=== PATIENT | male | born 2000 | race Caucasian/White ===

== ENCOUNTER 2022-05-13 04:07 | Emergency (ER) | payer BC, SELFPAY ==
[2022-05-13 04:10] VITALS: BP 121/72; PULSE 89; RESP 14; TEMP 36.3; O2SAT 93; BMI 23.7
[2022-05-13 04:25] VITALS: O2SAT 96
[2022-05-13 04:54] LABS: Strep A DNA Probe* NOT DETECTED (Not Detectd)
[2022-05-13 04:56] LABS: Basophils Percent Auto 0.2 % (0.0-3.0); Eosinophils Percent Auto 0.1 % (0.0-7.0); Hematocrit 42.4 % (37.0-53.0); Hemoglobin* 14.9 gm/dL (13.5-17.5); Immature Granulocytes Pct Auto 0.1 %; Lymphocytes Percent Auto 4.6 % (20-44); Mean Corpuscular HGB Conc 35 gm/dL (32-36); Mean Corpuscular Hemoglobin 32 pg (26-34); Mean Corpuscular Volume 90 fL (80-100); Monocytes Percent Auto 10.8 % (0.0-11.0); Neutrophils Percent Auto 84.2 % (42.0-72.0); Platelet Count* 242 K/uL (140-440); RDW Coefficient of Variation % 11.2 % (11.5-15.5); Red Blood Count 4.69 m/uL (4.30-5.90); White Blood Count* 18.32 K/uL (4.50-11.00)
[2022-05-13 04:59] LABS: Mono Screen* Negative (Negative); Slide Review Reflex No
[2022-05-13 05:06] LABS: PCR FLU A Negative PCR FLU A (Negative); PCR FLU B Negative PCR FLU B (Negative)
[2022-05-13 05:12] LABS: SARS PCR* Negative SARS-CoV-2 (Negative)
--- NOTE | 2022-05-13 05:15 | CRLHL7_ITS ---
For Patients: As a result of the Century Cures Act, medical imaging exams and procedure reports are released immediately into your electronic medical record. You may view this report before your referring provider. If you have questions, please contact your health care provider. INDICATION: Throat pain and swelling. TECHNIQUE: CT soft tissue of the neck was acquired with 93 cc Isovue 370 IV contrast. COMPARISON: None. FINDINGS: Skull base: Unremarkable. Pharynx/Larynx/Trachea: Epiglottis is normal. Moderate edema in the palatine tonsils. No tonsillar abscess. Salivary glands: Unremarkable. Thyroid gland: Unremarkable. No significant nodules. Lymph nodes: Several minimally enlarged bilateral lymph nodes are likely reactive. Vessels: Unremarkable for age. Bones: Unremarkable for age. Misc: No inflammation, mass or fluid collection. Lung apices: Unremarkable. IMPRESSION: Bilateral tonsillitis without abscess. Please note that all CT scans at this facility use dose modulation, iterative reconstruction, and/or weight-based dosing when appropriate to reduce radiation dose to as low as reasonably achievable. Dictated by Rolando Desir MD @ 05/13/2022 7:16:29 AM (Electronically Signed)
[2022-05-13] MEDS: 0.9 % SODIUM CHLORIDE 1000 ml 1,000 ML IV (05:26)
[2022-05-13] MEDS: METHYLPREDNISOLONE SOD SUCC 62.5 MG/ML (125) 93.75 MG IVP (05:34)
[2022-05-13] MEDS: cefTRIAXone 1 GM in 0.9 % SODIUM CHLORIDE Mini-bag 100 ML IVPB (06:05)
[2022-05-13 06:22] VITALS: PULSE 72; RESP 14; O2SAT 98
--- NOTE | 2022-05-13 07:02 | ED.NURSE ---
Report given to AILYN Saunders.
[2022-05-13 07:35] VITALS: BP 137/67; PULSE 75; RESP 20; TEMP 36.6; O2SAT 96
--- NOTE | 2022-05-14 03:52 | ED.GENADULT ---
HPI - General Adult General Chief complaint: Sore Throat Stated complaint: tonsil are swollen, trouble breathing Time Seen by Provider: 05/13/22 04:30 History of Present Illness HPI narrative: 21-year-old man here with complaint of sore throat. Increasingly difficult to swallow. Later discusses that was actually having trouble breathing though admits might have been some combination of mucus affecting at sensation as well. He did have a fever over 101 yesterday. This is 2nd day of markedly worse symptoms. Was sick earlier this week, 6 or 7 days ago. Seen in urgent care treated with a ?steroid spray? and screen negative for strep at that time. Did get better for a few days and now worsening as above. No particular exposures noted. Ibuprofen not really helping. Is trying to push fluids. Has Gatorade here with him. Related Data Home Medications Medication Instructions Recorded Confirmed No Known Home Medications 05/13/22 05/13/22 Allergies Allergy/AdvReac Type Severity Reaction Status Date / Time No Known Drug Allergies Allergy Verified 05/13/22 05:24 Review of Systems Status of ROS: Reports: 6 or more systems reviewed and unremarkable except as noted in History and below PFSH [facility] Social History Smoking Status: Never smoker How often do you have a drink containing alcohol: monthly or less AUDIT-C Alcohol total score: 1 Non-prescribed substance use: former substance user Non-prescribed substance use details: thc Exam Narrative: Exam Narrative: Pleasant. Sounds congested and the nasopharynx a bit of a hot potato voice. Looks flushed. Seems uncomfortable. Skin is warm and dry. Lungs appear to be clear. There is no stridor. Oropharynx is moist. Moderate but not bright red erythema with generalized swelling the tonsils and the posterior oropharynx. There is some exudate as well. It is symmetrical. Neck is supple and demonstrates pain with movement. He does have moderate plus anterior upper cervical lymphadenopathy right greater than left. Heart is in a regular rate and rhythm. No murmur rub or gallop identified. Abdomen is soft. There is some tenderness on reexamination right upper abdomen though without HSM appreciated. Extremities are without edema Const: Vital Signs, click to edit/add: Vital Signs - 24 hr 05/13/22 04:10 05/13/22 04:25 05/13/22 06:22 Temperature 97.4 F L Pulse Rate [Pulse Oximeter] 89 72 Respiratory Rate 14 14 Blood Pressure [Ri ght Upper Arm] 121/72 Pulse Oximetry 93 96 98 Oxygen Delivery Me thod Room Air Room Air 05/13/22 07:35 Temperature 97.8 F Pulse Rate [Pulse Oximeter] 75 Respiratory Rate 20 Blood Pressure [Ri ght Upper Arm] 137/67 Pulse Oximetry 96 Oxygen Delivery Me thod Room Air Documenting provider has reviewed patient's vital signs: yes Course Vital Signs Vital signs: Initial Vital Signs Temperature 97.4 F L 05/13/22 04:10 Temperature Source Temporal Artery Scan 05/13/22 04:10 Pulse Rate 89 05/13/22 04:10 Pulse Rhythm 05/13/22 04:10 Respiratory Rate 14 05/13/22 04:10 Blood Pressure 121/72 05/13/22 04:10 Blood Pressure Mean 88 05/13/22 04:10 Blood Pressure Position Sitting 05/13/22 04:10 Pulse Oximetry 93 05/13/22 04:10 Oxygen Delivery Method 05/13/22 04:10 Vital Signs Temperature 97.4 F L 05/13/22 04:10 Pulse Rate 89 05/13/22 04:10 Respiratory Rate 14 05/13/22 04:10 Blood Pressure 121/72 05/13/22 04:10 Pulse Oximetry 93 05/13/22 04:10 Oxygen Delivery Method 05/13/22 04:10 Temperature 97.8 F 05/13/22 07:35 Pulse Rate 75 05/13/22 07:35 Respiratory Rate 20 05/13/22 07:35 Blood Pressure 137/67 05/13/22 07:35 Pulse Oximetry 96 05/13/22 07:35 Oxygen Delivery Method 05/13/22 07:35 Medical Decision Making MDM Narrative Medical decision making narrative: I suspect tonsillitis and was anticipating outpatient management. I do not suspect there is an abscess given symmetry and the degree of induration but particularly lack of intense beefy redness that I typically associate with more of an evolving abscess. Would evaluate though given exudate present for possible mono. Is also tender in the right upper abdomen. Strep was repeated as well as screen for COVID and influenza. These were all negative. Did spray Hurricaine spray into throat for some temporary relief. Discussing again though his symptoms. With this concern of difficulty breathing white count of over 18,000 decided to proceed with soft tissue neck CT. On my read this was negative for abscess though I thought maybe some tiny for a phlegmonous evolution beginning in the right tonsil. Radiology over-read noting tonsillitis without abscess and with mild reactive lymphadenopathy. We do have a line. Was given Solu-Medrol and ceftriaxone. Given the probable need for hydration and since received IV contrast media is also given a L of normal saline. See patient discharge plan Lab Data Lab results reviewed: Yes I reviewed the patient's lab results Labs: Lab Results 05/13/22 05/13/22 05/13/22 Range/Units 04:22 04:22 04:45 WBC 18.32 H (4.50-11.00) K/uL RBC 4.69 (4.30-5.90) m/uL Hgb 14.9 (13.5-17.5) gm/dL Hct 42.4 (37.0-53.0) % MCV 90 (80-100) fL MCH 32 (26-34) pg MCHC 35 (32-36) gm/dL RDW Coeff of Carlo 11.2 L (11.5-15.5) % Plt Count 242 (140-440) K/uL Neut % (Auto) 84.2 H (42.0-72.0) % Lymph % (Auto) 4.6 L (20-44) % [place] % (Auto) 10.8 (0.0-11.0) % Eos % (Auto) 0.1 (0.0-7.0) % Baso % (Auto) 0.2 (0.0-3.0) % Neut # (Auto) 15.40 H (1.7-7.0) K/uL Lymph # (Auto) 0.80 L (0.90-2.90) K/uL [place] # (Auto) 2.00 H (0.00-0.90) K/UL Eos # (Auto) 0.00 (0.00-0.50) K/uL Baso # (Auto) 0.00 (0.00-0.30) K/uL SARS-CoV-2 (PCR) Negative SARS-CoV-2 (Negative) Monoscreen (Negative) Influenza Type A (PCR) Negative PCR FLU A (Negative) Influenza Type B (PCR) Negative PCR FLU B (Negative) Group A Strep DNA NOT DETECTED (Not Detectd) 05/13/22 Range/Units 04:45 WBC (4.50-11.00) K/uL RBC (4.30-5.90) m/uL Hgb (13.5-17.5) gm/dL Hct (37.0-53.0) % MCV (80-100) fL MCH (26-34) pg MCHC (32-36) gm/dL RDW Coeff of Carlo (11.5-15.5) % Plt Count (140-440) K/uL Neut % (Auto) (42.0-72.0) % Lymph % (Auto) (20-44) % [place] % (Auto) (0.0-11.0) % Eos % (Auto) (0.0-7.0) % Baso % (Auto) (0.0-3.0) % Neut # (Auto) (1.7-7.0) K/uL Lymph # (Auto) (0.90-2.90) K/uL [place] # (Auto) (0.00-0.90) K/UL Eos # (Auto) (0.00-0.50) K/uL Baso # (Auto) (0.00-0.30) K/uL SARS-CoV-2 (PCR) (Negative) Monoscreen Negative (Negative) Influenza Type A (PCR) (Negative) Influenza Type B (PCR) (Negative) Group A Strep DNA (Not Detectd) Discharge Plan Discharge Clinical Impression: Acute tonsillitis Patient Disposition: Home, Self-Care Condition: Stable Instructions: Tonsillitis (ED) Additional Instructions: Continue to focus on hydration. Can take up to 800 mg of ibuprofen or up to 1000 mg of acetaminophen per dose. Alternative to the ibuprofen could be up to 500 mg of naproxen 2 times daily. Consider gargling a few times daily with warm salt water -- dissolving 1/4 tsp salt in 4 - 5 oz of warm water. Return for inability to manage secretions, increasing difficulty breathing, uncontrolled pain. Amoxicillin and prednisone from [facility]. You could start the amoxicillin this evening. Can start prednisone tomorrow. Prescriptions: No Action No Known Home Medications Follow Up/Referrals: Provider,Not a Local [Primary Care Provider] - Stand Alone Forms: [facility] [facility] Info Instructions
== END 2022-05-13 07:41 | disposition home or self-care (01) ==
PROVIDERS: Emergency Provider Family Medicine
DX: J03.90 Acute tonsillitis, unspecified (principal)
CPT/HCPCS: 36415; 70491; 85025; 86308; 87631; 87651; 94761; 96365; 96375; 99284; 99285; J0696; J2930; J7030; Q9967